=== PATIENT | female | born 1960 | race African-American/Black ===

== ENCOUNTER 2018-02-15 10:39 | Emergency (ER) | payer OTHER ==
[~2018-02-15] VITALS: Ht 154.9 cm; Wt 45.4 kg
[2018-02-15] MEDS ORDERED: FLEXERIL10 MG PO (12:34)
[2018-02-15] MEDS ORDERED: MOTRIN600 MG PO (12:34)
[2018-02-15] MEDS ORDERED: PREDNISONE20 MG PO (12:35)
[2018-02-15 12:49] VITALS: BP 128/65
== END 2018-02-15 12:50 | disposition home or self-care (01) ==
LOC: EME 10:39
DX: M54.5 Low back pain (principal); M62.838 Other muscle spasm; M25.511 Pain in right shoulder; M54.2 Cervicalgia; I10 Essential (primary) hypertension
CPT/HCPCS: 72040; 72100; 73030; 99281; 99284; J1885